=== PATIENT | female | born 1940 | race Caucasian/White ===

== ENCOUNTER 2017-05-12 04:44 | Emergency (ER) | payer OTHER ==
--- NOTE | ~2017-05-12 | CR172 ---
[facility] A Service of [facility] & [facility] RADIOLOGY TEXT RESULTS PATIENT: TIERRA ARMENDARIZ LOCATION: [facility] : 40 UNIT #: [id number] AGE: [address]: JAKE LI APRN SEX: F ORDER DR: [id number] [facility] [address] [place], [place] [address] [id number] E MR#: [id number] Acc #: [id number] NAME: TIERRA ARMENDARIZ : 1940 SEX: F STUDY DATE/TIME: 05/12/2017 6:00 UNIT: [facility] ROOM: STUDY DESCRIPTION: CR Knee 3 Views Lt Attending Physician: Jake Li Aprn Ordering Physician: Conner Mejia M.D. Primary Care Physician: Cain Ceja Jr., M.D. MEDICAL IMAGING REPORT This report is preliminary unless electronic signature is present EXAM Left knee, 3 views, 05/12/2017. CLINICAL HISTORY Pain after fall at home this morning. FINDINGS There is advanced osteoarthritis, as well as atherosclerotic vascular calcification and osteopenia but no fracture, apparent joint effusion, or other acute abnormality is seen. IMPRESSION Advanced degenerative change without acute abnormality. Dictated by... Chente Hair M.D. THIS IS AN ELECTRONICALLY VERIFIED REPORT Chente Hair M.D. at 05/13/2017 10:24 AM LILY/vasiliy TD: 05/12/2017 14:20 JOB #: [id number] MEDICAL IMAGING REPORT Page 1 of 1 COPY
== END 2017-05-12 07:40 | disposition home or self-care (01) ==
LOC: CED 04:44
DX: S81.012A Laceration without foreign body, left knee, initial encounter (principal); F41.9 Anxiety disorder, unspecified; I10 Essential (primary) hypertension; Z88.0 Allergy status to penicillin; Z88.5 Allergy status to narcotic agent; W19.XXXA Unspecified fall, initial encounter
CPT/HCPCS: 12004; 73562; 99283